=== PATIENT | male | born 1980 | race Two or more races ===

== ENCOUNTER 2020-03-26 15:15 | Outpatient (REF) | payer OTHER, SELFPAY | END 2020-03-26 15:16 | disposition home or self-care (01) | LOC: HO.LAB 15:15 | PROVIDERS: PCP Internal Medicine; Visit Provider Internal Medicine | DX: Z20.828 Contact with and (suspected) exposure to other viral communicable diseases (principal) | CPT/HCPCS: 87635 ==

== ENCOUNTER 2022-09-01 12:56 | Outpatient (REF) | payer OTHER, SELFPAY ==
--- NOTE | ~2022-09-01 | XR_ITS ---
EXAMINATION: XR ANKLE, LEFT CLINICAL INFORMATION: Left ankle pain. COMPARISON: None TECHNIQUE: AP, lateral, and mortise views of the left ankle. FINDINGS: The ankle joint and mortise are intact. There is no acute fracture or dislocation. Corticated osseous densities are seen subjacent to the medial malleolus. The medial and lateral malleoli are intact. The tarsal bones are normally aligned. The soft tissues are unremarkable. XR/XR ankle LT min 3V IMPRESSION: Corticated osseous densities subjacent to the medial malleolus do not appear acute and could represent ossification centers, could be degenerative in nature or secondary to old injury. No acute abnormality.
== END 2022-09-01 12:57 | disposition home or self-care (01) ==
LOC: HO.HMGCX 12:56
PROVIDERS: PCP Internal Medicine; Visit Provider Internal Medicine
DX: S93.402A Sprain of unspecified ligament of left ankle, initial encounter (principal)
CPT/HCPCS: 73610

== ENCOUNTER → 2025-03-27 13:56 | Outpatient (BNVA) | payer OTHER, SELFPAY | PROVIDERS: PCP Internal Medicine; Visit Provider Physician Assistant Medical | DX: S90.112A Contusion of left great toe without damage to nail, initial encounter (principal); W20.8XXA Other cause of strike by thrown, projected or falling object, initial encounter | CPT/HCPCS: 73630; 99204 ==

== ENCOUNTER → 2025-03-29 13:52 | Outpatient (BNVA) | payer OTHER, SELFPAY | PROVIDERS: PCP Internal Medicine; Visit Provider Emergency Medicine | DX: S90.112A Contusion of left great toe without damage to nail, initial encounter (principal); W20.8XXA Other cause of strike by thrown, projected or falling object, initial encounter; Z02.79 Encounter for issue of other medical certificate | CPT/HCPCS: 99213 ==